=== PATIENT | male | born 1935 | race Caucasian/White ===

== ENCOUNTER 2018-11-10 20:22 | Inpatient (IN) | payer MEDICARE, OTHER ==
[2018-11-10] MEDS ORDERED: cefTRIAXone 2 GM Vial IVPUSH ONE (20:33)
[2018-11-10] MEDS ORDERED: Azithromycin 500 MG in Sodium Chloride 0.9% 250 ML IV ONE (20:33)
[2018-11-10] MEDS ORDERED: Sodium Chloride 0.9% 10 ML Syringe FLUSH PRN (20:33)
[2018-11-10] MEDS ORDERED: methylPREDNISolone Sodium Succinate 40 MG/1 ML SDV IVPUSH ONE (20:42)
[2018-11-10] MEDS ORDERED: Sodium Chloride 0.9% 1,000 ML IV ONE (20:42)
--- NOTE | 2018-11-10 21:02 | EDM.PDOC ---
ED HPI GENERAL MEDICAL PROBLEM - General Chief Complaint: Respiratory Problem Stated Complaint: NOT FEELING WELL Time Seen by Provider: 11/10/18 20:32 Source of Information: Reports: Patient History Limitations: Reports: No Limitations - History of Present Illness INITIAL COMMENTS - FREE TEXT/NARRATIVE: Patient comes in this evening with comlplaints of nausea, SOB, fever, cough. His daughter thinks he may have aspirated yesterday. He was out gardening early yesterday morning and developed nausea last night with emesis. Reports he felt better, but when he eats or drinks anything he does have emesis. He denies chest pain, abdominal pain or cramps, denies back pain. No urinary symptoms. Denies blood in urine or stool. Does complain of chills. Onset Date: 11/09/18 Duration: Intermittent Location: Reports: Generalized Severity: Moderate Worsens with: Reports: Eating, Movement Associated Symptoms: Reports: cough w sputum, Diaphoresis, Fever/Chills, Nausea/ Vomiting, Shortness of Breath - Related Data Allergies Allergy/AdvReac Type Severity Reaction Status Date / Time SIMONE Inhibitors Allergy Unknown Cannot Verified 11/10/18 20:39 Remember cisapride [From Propulsid] AdvReac Nausea and Verified 11/10/18 20:58 Vomiting Home Meds: Home Meds Metoprolol Succinate [Toprol Xl] 50 mg PO DAILY 11/10/18 [History] Psyllium Husk (With Sugar) [Metamucil Powder] 2 tsp PO DAILY 11/10/18 [History] Warfarin [Coumadin] 2.5 mg PO ASDIRECTED 11/10/18 [History] amLODIPine Besylate [Norvasc] 5 mg PO DAILY 11/10/18 [History] atorvaSTATin [Lipitor] 10 mg PO DAILY 11/10/18 [History] ED ROS GENERAL - Review of Systems Review Of Systems: See Below Constitutional: Reports: Fever, Chills HEENT: Reports: No Symptoms Respiratory: Reports: Shortness of Breath, Cough, Sputum Cardiovascular: Reports: Dyspnea on Exertion Endocrine: Reports: No Symptoms GI/Abdominal: Reports: Nausea, Vomiting : Reports: No Symptoms Musculoskeletal: Reports: No Symptoms Skin: Reports: No Symptoms Neurological: Reports: No Symptoms Psychiatric: Reports: No Symptoms Hematologic/Lymphatic: Reports: No Symptoms Immunologic: Reports: No Symptoms ED EXAM, GENERAL - Physical Exam Exam: See Below Free Text/Narrative:: PLEASE USE ER NOTE FOR ADMISSION HISTORY AND PHYSICAL Exam Limited By: No Limitations General Appearance: Alert, WD/WN, Moderate Distress Eye Exam: Bilateral Eye: EOMI, Normal Inspection, PERRL Ears: Normal TMs Nose: Normal Inspection, Normal Mucosa, No Blood Throat/Mouth: Normal Inspection, Normal Lips, Normal Teeth, Normal Gums, Normal Oropharynx, Normal Voice, No Airway Compromise Head: Atraumatic, Normocephalic Neck: Normal Inspection, Supple, Non-Tender, Full Range of Motion Respiratory/Chest: No Respiratory Distress, No Accessory Muscle Use, Chest Non- Tender, Rales (right lower lobe) Cardiovascular: Tachycardia Peripheral Pulses: 2+: Posterior Tibial (L), Posterior Tibial (R), Dorsalis Pedis (L), Dorsalis Pedis (R) GI/Abdominal: Normal Bowel Sounds, Soft, Non-Tender Back Exam: Normal Inspection, Full Range of Motion, NT Extremities: Pedal Edema (bilateral lower extremity edema 2+) Neurological: Alert, Oriented, CN II-XII Intact, Normal Cognition, Normal Gait, Normal Reflexes, No Motor/Sensory Deficits Psychiatric: Normal Affect, Normal Mood Skin Exam: Warm, Dry, Intact, Normal Color, No Rash Lymphatic: No Adenopathy EKG INTERPRETATION EKG Date: 11/10/18 Time: 20:25 Rhythm: Other (sinus tach) Rate (Beats/Min): 158 [place]: Normal P-Wave: Present QRS: Normal ST-T: Normal QT: Normal Comparison: NA - No Prior EKG Course - Vital Signs Last Recorded V/S: Last Vital Signs Temp 36.5 C 11/11/18 06:00 Pulse 107 H 11/11/18 06:00 Resp 18 11/11/18 06:00 BP 141/79 H 11/11/18 06:00 Pulse Ox 97 11/11/18 06:00 - Orders/Labs/Meds Orders: Active Orders 24 hr Category Date Time Status Chest 1V Frontal [CR] Stat Exams 11/10/18 20:33 Taken CULTURE BLOOD [BC] Stat Lab 11/10/18 20:58 Received CULTURE BLOOD [BC] Stat Lab 11/10/18 21:03 Received Sodium Chloride 0.9% [Saline Flush] Med 11/10/18 20:33 Active 10 ml FLUSH ASDIRECTED PRN Blood Culture x2 Reflex Set [OM.PC] Stat Oth 11/10/18 20:33 Ordered Saline Lock Insert [OM.PC] Routine Oth 11/10/18 20:33 Ordered Medication Orders Amlodipine Besylate (Norvasc) 5 mg PO DAILY [facility] Atorvastatin Calcium (Lipitor) 10 mg PO DAILY [facility] Lactated Ringer's (Ringers, Lactated) 1,000 mls @ 50 mls/hr IV ASDIRECTED [facility] Last Admin: 11/10/18 22:45 Dose: 50 mls/hr Piperacillin Sod/Tazobactam (Sod 3.375 gm/ Sodium Chloride) 100 mls @ 25 mls/ hr IV Q8H [facility] Metoprolol Succinate (Toprol Xl) 50 mg PO DAILY [facility] Ondansetron HCl (Zofran) 4 mg IV Q6H PRN PRN Reason: Nausea/Vomiting Psyllium Husk (Metamucil Sugar Free) 1 pkt PO DAILY [facility] Sodium Chloride (Saline Flush) 10 ml FLUSH ASDIRECTED PRN PRN Reason: Keep Vein Open Warfarin Sodium (Coumadin) 2.5 mg PO ASDIRECTED [facility] Labs: Laboratory Tests 11/10/18 11/10/18 11/10/18 Range/Units 20:58 20:58 20:58 WBC 11.6 H (4.0-10.0) x10^3/uL RBC 5.06 (4.5-6.0) x10^6/uL Hgb 14.8 (14.0-18.0) g/dL Hct 45.3 (40.0-52.0) % MCV 89.5 (78.0-93.0) fL MCH 29.2 (26.0-32.0) pg MCHC 32.7 (32.0-36.0) g/dL RDW Coeff of Kay 14.0 (10.0-15.0) % Plt Count 167 (130-400) x10^3/uL Neut % (Auto) 90.9 H (50.0-80.0) % Lymph % (Auto) 2.8 L (25.0-50.0) % [place] % (Auto) 6.3 (2.0-11.0) % Eos % (Auto) 0.0 (0.0-4.0) % Baso % (Auto) 0.0 L (0.2-1.2) % PT 28.3 H (10.0-12.8) SEC INR 2.5 (2.0-3.5) POC ABG pH (7.35-7.45) POC ABG pCO2 (35-45) mmHG POC ABG pO2 (80-105) mmHG POC ABG HCO3 (22-26) mmol/L POC ABG Total CO2 (23-27) mmol/L POC ABG O2 Sat (95-98) % POC ABG Base Excess (-2-3) mmol/L POC FiO2 Sodium 146 H (136-145) mmol/L Potassium 4.0 (3.5-5.1) mmol/L Chloride 108 H (98-107) mmol/L Carbon Dioxide 25 (21-32) mmol/L Anion Gap 17.0 (10-20) mmol/L BUN 30 H (7-18) mg/dL Creatinine 1.3 (0.70-1.30) mg/dL Est Cr Clr Drug Dosing TNP Estimated GFR (MDRD) 53 Glucose 142 H (74-106) mg/dL Lactic Acid (0.4-2.0) mmol/L Calcium 9.1 (8.5-10.1) mg/dL Corrected Calcium 9.10 (8.5-10.1) mg/dL Magnesium 1.9 (1.8-2.4) mg/dL Total Bilirubin 1.6 H (0.2-1.0) mg/dL AST 34 (15-37) U/L ALT 33 (16-63) U/L Alkaline Phosphatase 122 H (46-116) U/L Troponin I < 0.017 (<=0.056) ng/mL C-Reactive Protein (<=0.9) mg/dL NT-Pro-B Natriuret Pep 4207 H (<=450) pg/mL Total Protein 7.3 (6.4-8.2) g/dL Albumin 4.0 (3.4-5.0) g/dL Globulin 3.3 Albumin/Globulin Ratio 1.21 TSH, Ultra Sensitive 1.182 (0.358-3.74) uIU/mL POC Result Comm Urine Color (YELLOW) Urine Appearance (CLEAR) Urine pH (5.0-8.0) Ur Specific [place] Urine Protein (NEGATIVE) mg/dL Urine Glucose (UA) (NEGATIVE) mg/dL Urine Ketones (NEGATIVE) mg/dL Urine Occult Blood (NEGATIVE) Urine Nitrite (NEGATIVE) Urine Bilirubin (NEGATIVE) Urine Urobilinogen (0.2) EU/dL Ur Leukocyte Esterase (NEGATIVE) Urine RBC (NOT SEEN) /HPF Urine WBC (NOT SEEN) /HPF Ur Squamous Epith Cells (NEGATIVE) /HPF Urine Bacteria (NEGATIVE) /HPF Hyaline Casts (NEGATIVE) /HPF Urine Mucus (NEGATIVE) /LPF 11/10/18 11/10/18 11/10/18 Range/Units 20:58 20:58 21:19 WBC (4.0-10.0) x10^3/uL RBC (4.5-6.0) x10^6/uL Hgb (14.0-18.0) g/dL Hct (40.0-52.0) % MCV (78.0-93.0) fL MCH (26.0-32.0) pg MCHC (32.0-36.0) g/dL RDW Coeff of Kay (10.0-15.0) % Plt Count (130-400) x10^3/uL Neut % (Auto) (50.0-80.0) % Lymph % (Auto) (25.0-50.0) % [place] % (Auto) (2.0-11.0) % Eos % (Auto) (0.0-4.0) % Baso % (Auto) (0.2-1.2) % PT (10.0-12.8) SEC INR (2.0-3.5) POC ABG pH 7.401 (7.35-7.45) POC ABG pCO2 39 (35-45) mmHG POC ABG pO2 47 L* (80-105) mmHG POC ABG HCO3 24 (22-26) mmol/L POC ABG Total CO2 25 (23-27) mmol/L POC ABG O2 Sat 83 L (95-98) % POC ABG Base Excess -1 (-2-3) mmol/L POC FiO2 0.28 Sodium (136-145) mmol/L Potassium (3.5-5.1) mmol/L Chloride (98-107) mmol/L Carbon Dioxide (21-32) mmol/L Anion Gap (10-20) mmol/L BUN (7-18) mg/dL Creatinine (0.70-1.30) mg/dL Est Cr Clr Drug Dosing Estimated GFR (MDRD) Glucose (74-106) mg/dL Lactic Acid 2.5 H* (0.4-2.0) mmol/L Calcium (8.5-10.1) mg/dL Corrected Calcium (8.5-10.1) mg/dL Magnesium (1.8-2.4) mg/dL Total Bilirubin (0.2-1.0) mg/dL AST (15-37) U/L ALT (16-63) U/L Alkaline Phosphatase (46-116) U/L Troponin I (<=0.056) ng/mL C-Reactive Protein 17.4 H (<=0.9) mg/dL NT-Pro-B Natriuret Pep (<=450) pg/mL Total Protein (6.4-8.2) g/dL Albumin (3.4-5.0) g/dL Globulin Albumin/Globulin Ratio TSH, Ultra Sensitive (0.358-3.74) uIU/mL POC Result Comm Called critical res Urine Color (YELLOW) Urine Appearance (CLEAR) Urine pH (5.0-8.0) Ur Specific [place] Urine Protein (NEGATIVE) mg/dL Urine Glucose (UA) (NEGATIVE) mg/dL Urine Ketones (NEGATIVE) mg/dL Urine Occult Blood (NEGATIVE) Urine Nitrite (NEGATIVE) Urine Bilirubin (NEGATIVE) Urine Urobilinogen (0.2) EU/dL Ur Leukocyte Esterase (NEGATIVE) Urine RBC (NOT SEEN) /HPF Urine WBC (NOT SEEN) /HPF Ur Squamous Epith Cells (NEGATIVE) /HPF Urine Bacteria (NEGATIVE) /HPF Hyaline Casts (NEGATIVE) /HPF Urine Mucus (NEGATIVE) /LPF 11/10/18 Range/Units 21:36 WBC (4.0-10.0) x10^3/uL RBC (4.5-6.0) x10^6/uL Hgb (14.0-18.0) g/dL Hct (40.0-52.0) % MCV (78.0-93.0) fL MCH (26.0-32.0) pg MCHC (32.0-36.0) g/dL RDW Coeff of Kay (10.0-15.0) % Plt Count (130-400) x10^3/uL Neut % (Auto) (50.0-80.0) % Lymph % (Auto) (25.0-50.0) % [place] % (Auto) (2.0-11.0) % Eos % (Auto) (0.0-4.0) % Baso % (Auto) (0.2-1.2) % PT (10.0-12.8) SEC INR (2.0-3.5) POC ABG pH (7.35-7.45) POC ABG pCO2 (35-45) mmHG POC ABG pO2 (80-105) mmHG POC ABG HCO3 (22-26) mmol/L POC ABG Total CO2 (23-27) mmol/L POC ABG O2 Sat (95-98) % POC ABG Base Excess (-2-3) mmol/L POC FiO2 Sodium (136-145) mmol/L Potassium (3.5-5.1) mmol/L Chloride (98-107) mmol/L Carbon Dioxide (21-32) mmol/L Anion Gap (10-20) mmol/L BUN (7-18) mg/dL Creatinine (0.70-1.30) mg/dL Est Cr Clr Drug Dosing Estimated GFR (MDRD) Glucose (74-106) mg/dL Lactic Acid (0.4-2.0) mmol/L Calcium (8.5-10.1) mg/dL Corrected Calcium (8.5-10.1) mg/dL Magnesium (1.8-2.4) mg/dL Total Bilirubin (0.2-1.0) mg/dL AST (15-37) U/L ALT (16-63) U/L Alkaline Phosphatase (46-116) U/L Troponin I (<=0.056) ng/mL C-Reactive Protein (<=0.9) mg/dL NT-Pro-B Natriuret Pep (<=450) pg/mL Total Protein (6.4-8.2) g/dL Albumin (3.4-5.0) g/dL Globulin Albumin/Globulin Ratio TSH, Ultra Sensitive (0.358-3.74) uIU/mL POC Result Comm Urine Color Yellow (YELLOW) Urine Appearance Clear (CLEAR) Urine pH 5.5 (5.0-8.0) Ur Specific [place] 1.015 Urine Protein 30 H (NEGATIVE) mg/dL Urine Glucose (UA) Negative (NEGATIVE) mg/dL Urine Ketones 15 H (NEGATIVE) mg/dL Urine Occult Blood Negative (NEGATIVE) Urine Nitrite Negative (NEGATIVE) Urine Bilirubin Small H (NEGATIVE) Urine Urobilinogen 1.0 (0.2) EU/dL Ur Leukocyte Esterase Trace H (NEGATIVE) Urine RBC Not seen (NOT SEEN) /HPF Urine WBC 0-5 (NOT SEEN) /HPF Ur Squamous Epith Cells Rare (NEGATIVE) /HPF Urine Bacteria Rare (NEGATIVE) /HPF Hyaline Casts Rare H (NEGATIVE) /HPF Urine Mucus Rare H (NEGATIVE) /LPF Meds: Medications Generic Name Dose Route Start Last Admin Trade Name Freq PRN Reason Stop Dose Admin Amlodipine Besylate 5 mg 11/11/18 08:00 Norvasc PO DAILY [facility] Atorvastatin Calcium 10 mg 11/11/18 08:00 Lipitor PO DAILY [facility] Lactated Ringer's 1,000 mls @ 50 mls/hr 11/10/18 22:30 11/10/18 22:45 Ringers, Lactated IV 50 mls/hr ASDIRECTED SALLIE Administration Piperacillin Sod/Tazobactam 100 mls @ 25 mls/hr 11/11/18 09:00 Sod 3.375 gm/ Sodium Chloride IV Q8H [facility] Metoprolol Succinate 50 mg 11/11/18 08:00 Toprol Xl PO DAILY [facility] Ondansetron HCl 4 mg 11/10/18 22:12 Zofran IV Q6H PRN Nausea/Vomiting Psyllium Husk 1 pkt 11/11/18 08:00 Metamucil Sugar Free PO DAILY [facility] Sodium Chloride 10 ml 11/10/18 20:33 Saline Flush FLUSH ASDIRECTED PRN Keep Vein Open Warfarin Sodium 2.5 mg 11/10/18 22:45 Coumadin PO ASDIRECTED SALLIE Discontinued Medications Generic Name Dose Route Start Last Admin Trade Name Freq PRN Reason Stop Dose Admin Ampicillin Sodium/Sulbactam Sodium 3 gm 11/11/18 00:01 11/11/18 01:24 Unasyn IV Not Given Q6H SALLIE Ampicillin Sodium/Sulbactam Sodium 3 gm 11/10/18 22:30 11/11/18 00:15 Unasyn IV 11/10/18 22:31 Not Given ONETIME ONE Ceftriaxone Sodium 2 gm 11/10/18 20:33 11/10/18 21:04 Rocephin IVPUSH 11/10/18 20:34 2 gm STAT ONE Administration Azithromycin 500 mg/ Sodium 250 mls @ 250 mls/hr 11/10/18 20:33 11/10/18 21: 09 Chloride IV 11/10/18 21:32 250 mls/hr STAT ONE Administration Sodium Chloride 1,000 mls @ 999 mls/hr 11/10/18 20:42 11/10/18 21:00 Normal Saline IV 11/10/18 21:42 999 mls/hr ONETIME ONE Administration Piperacillin Sod/Tazobactam 100 mls @ 200 mls/hr 11/11/18 00:30 11/11/18 00: 50 Sod 4.5 gm/ Sodium Chloride IV 11/11/18 00:59 200 mls/hr ONETIME ONE Administration Methylprednisolone Sodium Succinate 40 mg 11/10/18 20:42 11/10/18 21:02 Solu-Medrol IVPUSH 11/10/18 20:43 40 mg ONETIME ONE Administration - Re-Assessments/Exams Free Text/Narrative Re-Assessment/Exam: Patient to be admitted to acute care. Code I. Stable in our care in the ER this evening Departure - Departure Time of Disposition: 22:15 Disposition: Admitted As Inpatient 66 Condition: Fair Clinical Impression: Aspiration pneumonia Qualifiers: Aspiration pneumonia type: due to regurgitated food Laterality: right Lung location: middle lobe of lung Qualified Code(s): J69.0 - Pneumonitis due to inhalation of food and vomit - Discharge Information *PRESCRIPTION DRUG MONITORING PROGRAM REVIEWED*: Not Applicable *COPY OF PRESCRIPTION DRUG MONITORING REPORT IN PATIENT EMELY: Not Applicable ED Communication - ED Communication Date/Time Date: 11/10/18 Time Called: 21:36 - Discussed Case With (1) Discussed Case With (1): Admitting Provider (Seth Warren was contacted regarding likely aspiration pneumonia and acute admission. Will seee in AM.) - Problem List & Annotations (1) Aspiration pneumonia SNOMED Code(s): 561937767 Code(s): J69.0 - PNEUMONITIS DUE TO INHALATION OF FOOD AND VOMIT Status: Acute Priority: Medium Current Visit: Yes Qualifiers: Aspiration pneumonia type: due to regurgitated food Laterality: right Lung location: middle lobe of lung Qualified Code(s): J69.0 - Pneumonitis due to inhalation of food and vomit - Problem List Review Problem List Initiated/Reviewed/Updated: Yes - My Orders Last 24 Hours: My Active Orders 11/10/18 20:33 Chest 1V Frontal [CR] Stat Sodium Chloride 0.9% [Saline Flush] 10 ml FLUSH ASDIRECTED PRN Blood Culture x2 Reflex Set [OM.PC] Stat Saline Lock Insert [OM.PC] Routine 11/10/18 20:58 CULTURE BLOOD [BC] Stat 11/10/18 21:03 CULTURE BLOOD [BC] Stat - Assessment/Plan Last 24 Hours: My Active Orders 11/10/18 20:33 Chest 1V Frontal [CR] Stat Sodium Chloride 0.9% [Saline Flush] 10 ml FLUSH ASDIRECTED PRN Blood Culture x2 Reflex Set [OM.PC] Stat Saline Lock Insert [OM.PC] Routine 11/10/18 20:58 CULTURE BLOOD [BC] Stat 11/10/18 21:03 CULTURE BLOOD [BC] Stat Assessment:: right middle lobe aspiration Plan: Plan Admit to acute status with IV antibiotics, oxygen administration, continuous pulse oximetry and telemetry. Patient is anticoagulated with warfarin and we will continue this. Will continue medications from home as tolerated. Will rehydrate slowly with his CHF enzymes being elevated. Recheck labs in AM. Seth Warren to assume care in AM. His primary provider Dr. Adelia Abreu is cushion maker hand Sunday, she may be willing to take over care for Lai at that time.
[2018-11-10 21:50] LABS: CHLORIDE,CL 108 mmol/L (98-107); SODIUM,NA 146 mmol/L (136-145)
[2018-11-10] MEDS ORDERED: Ondansetron 4 MG/2 ML SDV IV PRN (22:12)
[2018-11-10] MEDS ORDERED: Ampicillin/Sulbactam Na 3 GM Vial IV ONE (22:30)
[2018-11-10] MEDS: Lactated Ringers 1,000 ML IV SCH (22:45)
[2018-11-11] MEDS ORDERED: Piperacillin/Tazobactam 4.5 GM in Sodium Chloride 0.9% 100 ML IV SCH ×2
[2018-11-11] MEDS ORDERED: Ampicillin/Sulbactam Na 3 GM Vial IV SCH (00:01)
[2018-11-11] MEDS ORDERED: Piperacillin/Tazobactam 4.5 GM in Sodium Chloride 0.9% 100 ML IV ONE (00:30)
[2018-11-11 07:35] LABS: ANION GAP 13.2 mmol/L (10-20)
[2018-11-11] MEDS ORDERED: amLODIPine 10 MG Tab PO SCH (08:00)
--- NOTE | 2018-11-11 08:14 | CR ---
[id number] RAD/RAD Chest PA or AP 1V EXAM: FRONTAL CHEST INDICATION: Shortness of breath with aspiration pneumonia. COMPARISON: None. DISCUSSION: Mild to moderate medial right lung base airspace opacification compatible with the clinical history of pneumonia. Possible early infiltrates or atelectasis in the left lung base. Unless clinically indicated sooner, a 6 week follow-up exam suggested to ensure resolution. There is mild eventration of right hemidiaphragm. Possible underlying chronic obstructive pulmonary disease. Borderline heart size without evidence congestive heart failure. IMPRESSION: 1. Right base infiltrates. Oleg Cooper MD 11/11/18 0812 Thank you for allowing us to participate in the care of your patient.
--- NOTE | 2018-11-11 08:30 | PCM.PN ---
- General Info Date of Service: 11/11/18 Admission Dx/Problem (Free Text): Pt. is feeling much improved this AM. He was briefly on O2 per NRB at 10L/min due to tachycardia and low O2 sats. He has been on NC at 4L/min for a majority of the night. Blood gas is much improved this am with a PO2 increase from 47 to 127. He was given rocephin and azithromycin in ER, but given his history of recent aspiration, he was started on zosyn 4.5 gm with pharmacy to dose. Pt. states the he slept relatively well. He is continuing to get IV LR at 50ml an hour as his BNP was elevated. Pt. lactic acid decreased from 2.7 to 1.5 this AM as well. Functional Status: Reports: Pain Controlled - Review of Systems General: Reports: No Symptoms HEENT: Reports: No Symptoms Pulmonary: Reports: Shortness of Breath, Cough Cardiovascular: Reports: No Symptoms Gastrointestinal: Reports: No Symptoms Genitourinary: Reports: No Symptoms Musculoskeletal: Reports: No Symptoms Skin: Reports: No Symptoms Neurological: Reports: No Symptoms Psychiatric: Reports: No Symptoms - Patient Data Vitals - Most Recent: Last Vital Signs Temp 36.5 C 11/11/18 06:00 Pulse 107 H 11/11/18 06:00 Resp 18 11/11/18 06:00 BP 141/79 H 11/11/18 06:00 Pulse Ox 97 11/11/18 06:00 Weight - Most Recent: 82.871 kg Lab Results Last 24 Hours: Laboratory Results - last 24 hr 11/10/18 11/10/18 11/10/18 Range/Units 20:58 20:58 20:58 WBC 11.6 H (4.0-10.0) x10^3/uL RBC 5.06 (4.5-6.0) x10^6/uL Hgb 14.8 (14.0-18.0) g/dL Hct 45.3 (40.0-52.0) % MCV 89.5 (78.0-93.0) fL MCH 29.2 (26.0-32.0) pg MCHC 32.7 (32.0-36.0) g/dL RDW Coeff of Kay 14.0 (10.0-15.0) % Plt Count 167 (130-400) x10^3/uL Neut % (Auto) 90.9 H (50.0-80.0) % Lymph % (Auto) 2.8 L (25.0-50.0) % [place] % (Auto) 6.3 (2.0-11.0) % Eos % (Auto) 0.0 (0.0-4.0) % Baso % (Auto) 0.0 L (0.2-1.2) % PT 28.3 H (10.0-12.8) SEC INR 2.5 (2.0-3.5) POC ABG pH (7.35-7.45) POC ABG pCO2 (35-45) mmHG POC ABG pO2 (80-105) mmHG POC ABG HCO3 (22-26) mmol/L POC ABG Total CO2 (23-27) mmol/L POC ABG O2 Sat (95-98) % POC ABG Base Excess (-2-3) mmol/L POC FiO2 Sodium 146 H (136-145) mmol/L Potassium 4.0 (3.5-5.1) mmol/L Chloride 108 H (98-107) mmol/L Carbon Dioxide 25 (21-32) mmol/L Anion Gap 17.0 (10-20) mmol/L BUN 30 H (7-18) mg/dL Creatinine 1.3 (0.70-1.30) mg/dL Est Cr Clr Drug Dosing TNP Estimated GFR (MDRD) 53 Glucose 142 H (74-106) mg/dL Lactic Acid (0.4-2.0) mmol/L Calcium 9.1 (8.5-10.1) mg/dL Corrected Calcium 9.10 (8.5-10.1) mg/dL Magnesium 1.9 (1.8-2.4) mg/dL Total Bilirubin 1.6 H (0.2-1.0) mg/dL AST 34 (15-37) U/L ALT 33 (16-63) U/L Alkaline Phosphatase 122 H (46-116) U/L Troponin I < 0.017 (<=0.056) ng/mL C-Reactive Protein (<=0.9) mg/dL NT-Pro-B Natriuret Pep 4207 H (<=450) pg/mL Total Protein 7.3 (6.4-8.2) g/dL Albumin 4.0 (3.4-5.0) g/dL Globulin 3.3 Albumin/Globulin Ratio 1.21 TSH, Ultra Sensitive 1.182 (0.358-3.74) uIU/mL POC Result Comm Urine Color (YELLOW) Urine Appearance (CLEAR) Urine pH (5.0-8.0) Ur Specific [place] Urine Protein (NEGATIVE) mg/dL Urine Glucose (UA) (NEGATIVE) mg/dL Urine Ketones (NEGATIVE) mg/dL Urine Occult Blood (NEGATIVE) Urine Nitrite (NEGATIVE) Urine Bilirubin (NEGATIVE) Urine Urobilinogen (0.2) EU/dL Ur Leukocyte Esterase (NEGATIVE) Urine RBC (NOT SEEN) /HPF Urine WBC (NOT SEEN) /HPF Ur Squamous Epith Cells (NEGATIVE) /HPF Urine Bacteria (NEGATIVE) /HPF Hyaline Casts (NEGATIVE) /HPF Urine Mucus (NEGATIVE) /LPF 11/10/18 11/10/18 11/10/18 Range/Units 20:58 20:58 21:19 WBC (4.0-10.0) x10^3/uL RBC (4.5-6.0) x10^6/uL Hgb (14.0-18.0) g/dL Hct (40.0-52.0) % MCV (78.0-93.0) fL MCH (26.0-32.0) pg MCHC (32.0-36.0) g/dL RDW Coeff of Kay (10.0-15.0) % Plt Count (130-400) x10^3/uL Neut % (Auto) (50.0-80.0) % Lymph % (Auto) (25.0-50.0) % [place] % (Auto) (2.0-11.0) % Eos % (Auto) (0.0-4.0) % Baso % (Auto) (0.2-1.2) % PT (10.0-12.8) SEC INR (2.0-3.5) POC ABG pH 7.401 (7.35-7.45) POC ABG pCO2 39 (35-45) mmHG POC ABG pO2 47 L* (80-105) mmHG POC ABG HCO3 24 (22-26) mmol/L POC ABG Total CO2 25 (23-27) mmol/L POC ABG O2 Sat 83 L (95-98) % POC ABG Base Excess -1 (-2-3) mmol/L POC FiO2 0.28 Sodium (136-145) mmol/L Potassium (3.5-5.1) mmol/L Chloride (98-107) mmol/L Carbon Dioxide (21-32) mmol/L Anion Gap (10-20) mmol/L BUN (7-18) mg/dL Creatinine (0.70-1.30) mg/dL Est Cr Clr Drug Dosing Estimated GFR (MDRD) Glucose (74-106) mg/dL Lactic Acid 2.5 H* (0.4-2.0) mmol/L Calcium (8.5-10.1) mg/dL Corrected Calcium (8.5-10.1) mg/dL Magnesium (1.8-2.4) mg/dL Total Bilirubin (0.2-1.0) mg/dL AST (15-37) U/L ALT (16-63) U/L Alkaline Phosphatase (46-116) U/L Troponin I (<=0.056) ng/mL C-Reactive Protein 17.4 H (<=0.9) mg/dL NT-Pro-B Natriuret Pep (<=450) pg/mL Total Protein (6.4-8.2) g/dL Albumin (3.4-5.0) g/dL Globulin Albumin/Globulin Ratio TSH, Ultra Sensitive (0.358-3.74) uIU/mL POC Result Comm Called critical res Urine Color (YELLOW) Urine Appearance (CLEAR) Urine pH (5.0-8.0) Ur Specific [place] Urine Protein (NEGATIVE) mg/dL Urine Glucose (UA) (NEGATIVE) mg/dL Urine Ketones (NEGATIVE) mg/dL Urine Occult Blood (NEGATIVE) Urine Nitrite (NEGATIVE) Urine Bilirubin (NEGATIVE) Urine Urobilinogen (0.2) EU/dL Ur Leukocyte Esterase (NEGATIVE) Urine RBC (NOT SEEN) /HPF Urine WBC (NOT SEEN) /HPF Ur Squamous Epith Cells (NEGATIVE) /HPF Urine Bacteria (NEGATIVE) /HPF Hyaline Casts (NEGATIVE) /HPF Urine Mucus (NEGATIVE) /LPF 11/10/18 11/11/18 11/11/18 Range/Units 21:36 06:30 06:30 WBC 13.1 H (4.0-10.0) x10^3/uL RBC 4.72 (4.5-6.0) x10^6/uL Hgb 13.8 L (14.0-18.0) g/dL Hct 42.9 (40.0-52.0) % MCV 90.9 (78.0-93.0) fL MCH 29.2 (26.0-32.0) pg MCHC 32.2 (32.0-36.0) g/dL RDW Coeff of Kay 13.9 (10.0-15.0) % Plt Count 137 (130-400) x10^3/uL Neut % (Auto) 91.9 H (50.0-80.0) % Lymph % (Auto) 2.8 L (25.0-50.0) % [place] % (Auto) 5.2 (2.0-11.0) % Eos % (Auto) 0.0 (0.0-4.0) % Baso % (Auto) 0.1 L (0.2-1.2) % PT (10.0-12.8) SEC INR (2.0-3.5) POC ABG pH (7.35-7.45) POC ABG pCO2 (35-45) mmHG POC ABG pO2 (80-105) mmHG POC ABG HCO3 (22-26) mmol/L POC ABG Total CO2 (23-27) mmol/L POC ABG O2 Sat (95-98) % POC ABG Base Excess (-2-3) mmol/L POC FiO2 Sodium 146 H (136-145) mmol/L Potassium 4.2 (3.5-5.1) mmol/L Chloride 109 H (98-107) mmol/L Carbon Dioxide 28 (21-32) mmol/L Anion Gap 13.2 (10-20) mmol/L BUN 33 H (7-18) mg/dL Creatinine 1.3 (0.70-1.30) mg/dL Est Cr Clr Drug Dosing 42.35 Estimated GFR (MDRD) 53 Glucose 151 H (74-106) mg/dL Lactic Acid (0.4-2.0) mmol/L Calcium 8.6 (8.5-10.1) mg/dL Corrected Calcium (8.5-10.1) mg/dL Magnesium (1.8-2.4) mg/dL Total Bilirubin (0.2-1.0) mg/dL AST (15-37) U/L ALT (16-63) U/L Alkaline Phosphatase (46-116) U/L Troponin I (<=0.056) ng/mL C-Reactive Protein 22.1 H (<=0.9) mg/dL NT-Pro-B Natriuret Pep (<=450) pg/mL Total Protein (6.4-8.2) g/dL Albumin (3.4-5.0) g/dL Globulin Albumin/Globulin Ratio TSH, Ultra Sensitive (0.358-3.74) uIU/mL POC Result Comm Urine Color Yellow (YELLOW) Urine Appearance Clear (CLEAR) Urine pH 5.5 (5.0-8.0) Ur Specific [place] 1.015 Urine Protein 30 H (NEGATIVE) mg/dL Urine Glucose (UA) Negative (NEGATIVE) mg/dL Urine Ketones 15 H (NEGATIVE) mg/dL Urine Occult Blood Negative (NEGATIVE) Urine Nitrite Negative (NEGATIVE) Urine Bilirubin Small H (NEGATIVE) Urine Urobilinogen 1.0 (0.2) EU/dL Ur Leukocyte Esterase Trace H (NEGATIVE) Urine RBC Not seen (NOT SEEN) /HPF Urine WBC 0-5 (NOT SEEN) /HPF Ur Squamous Epith Cells Rare (NEGATIVE) /HPF Urine Bacteria Rare (NEGATIVE) /HPF Hyaline Casts Rare H (NEGATIVE) /HPF Urine Mucus Rare H (NEGATIVE) /LPF 11/11/18 11/11/18 Range/Units 06:30 07:54 WBC (4.0-10.0) x10^3/uL RBC (4.5-6.0) x10^6/uL Hgb (14.0-18.0) g/dL Hct (40.0-52.0) % MCV (78.0-93.0) fL MCH (26.0-32.0) pg MCHC (32.0-36.0) g/dL RDW Coeff of Kay (10.0-15.0) % Plt Count (130-400) x10^3/uL Neut % (Auto) (50.0-80.0) % Lymph % (Auto) (25.0-50.0) % [place] % (Auto) (2.0-11.0) % Eos % (Auto) (0.0-4.0) % Baso % (Auto) (0.2-1.2) % PT (10.0-12.8) SEC INR (2.0-3.5) POC ABG pH 7.381 (7.35-7.45) POC ABG pCO2 40 (35-45) mmHG POC ABG pO2 124 H (80-105) mmHG POC ABG HCO3 24 (22-26) mmol/L POC ABG Total CO2 25 (23-27) mmol/L POC ABG O2 Sat 99 H (95-98) % POC ABG Base Excess -1 (-2-3) mmol/L POC FiO2 0.44 Sodium (136-145) mmol/L Potassium (3.5-5.1) mmol/L Chloride (98-107) mmol/L Carbon Dioxide (21-32) mmol/L Anion Gap (10-20) mmol/L BUN (7-18) mg/dL Creatinine (0.70-1.30) mg/dL Est Cr Clr Drug Dosing Estimated GFR (MDRD) Glucose (74-106) mg/dL Lactic Acid 1.7 (0.4-2.0) mmol/L Calcium (8.5-10.1) mg/dL Corrected Calcium (8.5-10.1) mg/dL Magnesium (1.8-2.4) mg/dL Total Bilirubin (0.2-1.0) mg/dL AST (15-37) U/L ALT (16-63) U/L Alkaline Phosphatase (46-116) U/L Troponin I (<=0.056) ng/mL C-Reactive Protein (<=0.9) mg/dL NT-Pro-B Natriuret Pep (<=450) pg/mL Total Protein (6.4-8.2) g/dL Albumin (3.4-5.0) g/dL Globulin Albumin/Globulin Ratio TSH, Ultra Sensitive (0.358-3.74) uIU/mL POC Result Comm Urine Color (YELLOW) Urine Appearance (CLEAR) Urine pH (5.0-8.0) Ur Specific [place] Urine Protein (NEGATIVE) mg/dL Urine Glucose (UA) (NEGATIVE) mg/dL Urine Ketones (NEGATIVE) mg/dL Urine Occult Blood (NEGATIVE) Urine Nitrite (NEGATIVE) Urine Bilirubin (NEGATIVE) Urine Urobilinogen (0.2) EU/dL Ur Leukocyte Esterase (NEGATIVE) Urine RBC (NOT SEEN) /HPF Urine WBC (NOT SEEN) /HPF Ur Squamous Epith Cells (NEGATIVE) /HPF Urine Bacteria (NEGATIVE) /HPF Hyaline Casts (NEGATIVE) /HPF Urine Mucus (NEGATIVE) /LPF Med Orders - Current: Current Medications Amlodipine Besylate (Norvasc) 5 mg PO DAILY [facility] Atorvastatin Calcium (Lipitor) 10 mg PO DAILY [facility] Lactated Ringer's (Ringers, Lactated) 1,000 mls @ 50 mls/hr IV ASDIRECTED [facility] Last Admin: 11/10/18 22:45 Dose: 50 mls/hr Piperacillin Sod/Tazobactam (Sod 3.375 gm/ Sodium Chloride) 100 mls @ 25 mls/ hr IV Q8H [facility] Metoprolol Succinate (Toprol Xl) 50 mg PO DAILY [facility] Ondansetron HCl (Zofran) 4 mg IV Q6H PRN PRN Reason: Nausea/Vomiting Psyllium Husk (Metamucil Sugar Free) 1 pkt PO DAILY [facility] Sodium Chloride (Saline Flush) 10 ml FLUSH ASDIRECTED PRN PRN Reason: Keep Vein Open Warfarin Sodium (Coumadin) 2.5 mg PO ASDIRECTED [facility] Discontinued Medications Ampicillin Sodium/Sulbactam Sodium (Unasyn) 3 gm IV Q6H [facility] Last Admin: 11/11/18 01:24 Dose: Not Given Ampicillin Sodium/Sulbactam Sodium (Unasyn) 3 gm IV ONETIME ONE Stop: 11/10/18 22:31 Last Admin: 11/11/18 00:15 Dose: Not Given Ceftriaxone Sodium (Rocephin) 2 gm IVPUSH STAT ONE Stop: 11/10/18 20:34 Last Admin: 11/10/18 21:04 Dose: 2 gm Azithromycin 500 mg/ Sodium (Chloride) 250 mls @ 250 mls/hr IV STAT ONE Stop: 11/10/18 21:32 Last Admin: 11/10/18 21:09 Dose: 250 mls/hr Sodium Chloride (Normal Saline) 1,000 mls @ 999 mls/hr IV ONETIME ONE Stop: 11/10/18 21:42 Last Admin: 11/10/18 21:00 Dose: 999 mls/hr Piperacillin Sod/Tazobactam (Sod 4.5 gm/ Sodium Chloride) 100 mls @ 200 mls/hr IV ONETIME ONE Stop: 11/11/18 00:59 Last Admin: 11/11/18 00:50 Dose: 200 mls/hr Methylprednisolone Sodium Succinate (Solu-Medrol) 40 mg IVPUSH ONETIME ONE Stop: 11/10/18 20:43 Last Admin: 11/10/18 21:02 Dose: 40 mg - Exam General: Alert, Oriented Lungs: Decreased Breath Sounds, Crackles, Rhonchi Cardiovascular: Irregular Rhythm GI/Abdominal Exam: Normal Bowel Sounds, Soft, Non-Tender, No Organomegaly, No Distention, No Abnormal Bruit, No Mass (Male) Exam: Deferred Back Exam: Normal Inspection, Full Range of Motion Extremities: Normal Inspection, Normal Range of Motion, Non-Tender, No Pedal Edema, Normal Capillary Refill Skin: Warm, Dry, Intact Neurological: No New Focal Deficit, Normal Speech, Normal Tone, Strength Equal Bilateral, Sensation Intact, Cranial Nerves Intact Psy/Mental Status: Alert, Normal Affect, Normal Mood - Problem List & Annotations (1) Aspiration pneumonia SNOMED Code(s): 220482329 Code(s): J69.0 - PNEUMONITIS DUE TO INHALATION OF FOOD AND VOMIT Status: Acute Priority: Medium Current Visit: Yes Qualifiers: Aspiration pneumonia type: due to regurgitated food Laterality: right Lung location: middle lobe of lung Qualified Code(s): J69.0 - Pneumonitis due to inhalation of food and vomit - Problem List Review Problem List Initiated/Reviewed/Updated: Yes - My Orders Last 24 Hours: My Active Orders 11/11/18 09:00 Piperacillin/Tazobactam [Zosyn] 3.375 gm Sodium Chloride 0.9% [Normal Saline] 100 ml IV Q8H - Plan Plan:: Pt. PCP will be assuming care of the patient today. She states that she will round on him around noon as I have seen him this AM. No changes to his medications at this point. Continue IV zosyn every 6 hours. He is already anticoagulated due to a-fib and his INR was theraputic. All questions were answered.
[2018-11-11] MEDS: Psyllium Husk Powder Sugar Free 5.85 GM Packet PO SCH (08:38)
[2018-11-11] MEDS: Metoprolol Succinate 50 MG Tab.ER PO SCH (08:41)
[2018-11-11] MEDS: atorvaSTATin 10 MG Tab PO SCH (08:43)
[2018-11-11] MEDS: Piperacillin/Tazobactam 3.375 GM in Sodium Chloride 0.9% 100 ML IV SCH ×2 (08:47→17:23)
[2018-11-11] MEDS ORDERED: Metoprolol Tartrate 50 MG Tab PO ONE (12:00)
--- NOTE | 2018-11-11 16:41 | CR ---
[id number] RAD/RAD Chest PA And Lateral EXAM: FRONTAL CHEST INDICATION: PNEUMONIA. COMPARISON: November 10, 2018. DISCUSSION: Mild to moderate medial right lung base airspace opacification is not changed when compared to the prior study. There is mild eventration of right hemidiaphragm. Pulmonary hyperinflation. Borderline heart size without evidence congestive heart failure. IMPRESSION: 1. Stable chest with right base pulmonary infiltrates. Prieto Corley DO 11/11/18 [id number] Thank you for allowing us to participate in the care of your patient.
--- NOTE | 2018-11-11 16:44 | PN ---
Progress Note for GWENDOLYN MOORE Date: 11/11/2018 Room #: .[facility] SUBJECTIVE: Hospital day #2 on an 83-year-old admitted yesterday with a right middle lobe pneumonia. The patient states he started feeling unwell Sunday. He was having a hard time swallowing liquids. They were sort of coming up, and he felt like he could throw up, but he did not. He started to cough up some stuff, but was not overly short of breath, but presented to the ER at the urgency of his family with some fever and was found to be quite hypoxic and in fact, put on a non-rebreather mask. He has been able to weight be weaned down to 6 L overnight. He states he actually feels better. He is wondering why he cannot go home. He has no history of needing oxygen at home. He does have a history of AFib. His rates have been quite elevated, up into the 130s and 40s with activity. He denies any chest pain. He was initially given Rocephin and azithromycin and switched over to IV Zosyn by the hospitalist this morning. OBJECTIVE: GENERAL: He is in no acute distress. VITAL SIGNS: Do show a temperature of 98.8. T-max in the last 24 hours was 100.9 at 2230 last night. His heart rate is currently 110, blood pressure 128/78, respiratory rate 18, and O2 is 97% on 6 L. HEART: Irregularly irregular without murmur noted. LUNGS: Lung sounds do show rhonchi noted in the right base. Decreased lung sounds there. Otherwise, the left lung is clear. ABDOMEN: Nondistended and nontender. EXTREMITIES: Warm and dry. He had no edema. MENTAL STATUS: He is alert. He is oriented x3. LABORATORY DATA: Lab work from today did show his white count up from 11.6 to 13.1, hemoglobin down slightly to 13.8, platelets 137. INR yesterday 2.5. PO2, which was 47 on admission now up to 124. Sodium 146, potassium 4.2, chloride 109, bicarb 28, BUN 33, creatinine 1.3, glucose 151. Lactic down to 1.7, it was 2.5 on admission. Calcium 8.6. CRP up to 22.1. UA showed 0-5 wbc's. ASSESSMENT: 1. Sepsis due to community-acquired pneumonia versus aspiration. Given history, we will get Speech Therapy involved for a swallow study. We will continue on the IV Zosyn for now. We will repeat his lab work tomorrow. We will continue to wean oxygen as able, and I will get a repeat chest x- ray later today. 2. Atrial fibrillation with rapid ventricular rates. We will go ahead and give him a p.o. dose of Lopressor now. We will continue his Toprol 50 mg daily, but increase it if indicated. He is also on Norvasc 5 mg daily, which I am going to hold tomorrow's dose in case further blood pressure adjustments are needed with the Toprol. He is already on Coumadin. We will repeat an INR tomorrow. 3. Acute hypoxic respiratory failure due to community-acquired pneumonia. We will continue to wean oxygen. 4. Essential hypertension. Blood pressure is currently controlled. 5. History of hepatic cirrhosis. This has been stable. Bilirubin was mildly elevated. No further monitoring planned unless other symptoms persist. 6. History of renal failure. His creatinine has been stable. We will continue to monitor closely. We will continue him on some low-dose IV fluids. I am not concerned that he is having any heart failure symptoms. Baseline creatinine is 1.0. PLAN: The patient will continue acute cares with IV fluids, IV Zosyn day #1, IV antibiotics day #2. Wean oxygen as able. Anticipate that overall the patient may be able for discharge as soon as tomorrow. Repeat x-ray and continue to follow his course, get speech involved. MKA: 11/11/2018 16:12:30 MODL: 11/11/2018 16:40:33 /[id number] MTDD
[2018-11-11] MEDS ORDERED: Warfarin 2.5 MG Tab PO SCH (20:00)
[2018-11-12] MEDS: Piperacillin/Tazobactam 3.375 GM in Sodium Chloride 0.9% 100 ML IV SCH (00:40)
[2018-11-12] MEDS: Lactated Ringers 1,000 ML IV SCH (00:45)
[2018-11-12] MEDS: atorvaSTATin 10 MG Tab PO SCH (07:47)
[2018-11-12] MEDS: Metoprolol Succinate 50 MG Tab.ER PO SCH (07:48)
[2018-11-12] MEDS: Psyllium Husk Powder Sugar Free 5.85 GM Packet PO SCH (07:50)
[2018-11-12] MEDS ORDERED: Metoprolol Succinate 50 MG Tab.ER PO ONE (09:00)
[2018-11-12] MEDS ORDERED: Amoxicillin/Clavulanate K 875-125 MG Tab PO SCH (09:30)
--- NOTE | 2018-11-12 11:53 | DISCH ---
PRIMARY DISCHARGE DIAGNOSES: 1. A right middle lobe pneumonia, suspected due to aspiration as patient had some trouble swallowing. 2. Sepsis due to the pneumonia. 3. Acute hypoxic respiratory failure due to pneumonia. 4. Atrial fibrillation with rapid ventricular rates due to acute illness. 5. Essential hypertension. 6. Remote history of hepatic cirrhosis. 7. History of renal failure due to illness. Kidney function stable on this admission. 8. Elevated proBNP, but no known history of heart failure. No symptoms during this stay. 9. Previous kidney stones. 10.Previous toe amputation. 11.Mixed hyperlipidemia. REASON FOR ADMISSION: On the date of admission, this 83-year-old had been feeling unwell since the previous day. He had some trouble swallowing. When he was having more trouble with cough and shortness of breath and fever, presented to the emergency room and had a fever of 100.2 with T-max up to 100.9, heart rates into the 160s, O2 sats down to 84% on room air. He had an x-ray which showed the right middle lobe pneumonia. He was admitted. He was placed on IV Rocephin and Zithromax, but on the next morning was switched over to IV Zosyn. His blood cultures were negative. No sputum cultures were obtained. His cough and breathing improved. He was weaned from a non-rebreather mask down to 6 L yesterday and was just taken off oxygen this morning satting 95% on room air. Due to the faster heart rates, his amlodipine was held and he was given a p.r.n. dose of Lopressor 50. His Toprol-XL this morning was also increased to 100 and his heart rates were back down around 100 with maximum rates instead of into the 140s and 150s, now up to 120s when he is up moving around, but he was feeling well. He was not having any symptoms. He was having no chest pain. He was having no leg swelling. Otherwise, he was switched over to oral Augmentin this morning. He has been on yogurt for C. diff prophylaxis. His lab work had showed resolution of white count down to 9.4 today, hemoglobin was 12.8. He had been on Coumadin for DVT prophylaxis. His platelets were 136, 167 on admission. Creatinine was 1.2. Otherwise, all electrolytes were okay and his INR was 2.8. DISCHARGE PLANS AND INSTRUCTIONS: He will follow up in the clinic with Dr. Abreu in 1 week at 3:40 in the afternoon with an INR check. He will increase his Toprol to 100 mg daily until seen and hold his amlodipine. This is for better heart rate control. He will take Augmentin 875 twice daily for another 7 doses. He will take his warfarin just 2.5 tonight instead of 5, otherwise be on his home dosing. He will cough and deep breaths. He will avoid excessive activity. He does not need oxygen. PHYSICAL EXAMINATION: Discharge Vital Signs: Include a temperature 98.4, pulse 96, blood pressure 120/76, respiratory rate 20, O2 of 95% on room air. General: He is in no acute distress. Heart: Regularly irregular. Lungs: Lung sounds are clear over the left lung, but decreased with rhonchi over that right middle lobe. Abdomen: Nondistended, nontender. Extremities: Warm and dry. No edema. Mental Status: He is alert and orientated x3. DIAGNOSTIC DATA: He did have an x-ray repeated late yesterday afternoon, which actually was showing continued pulmonary infiltrate in that right mid lung and base, however, no effusion, no worsening. MKA: 11/12/2018 09:49:53 MODL: 11/12/2018 11:41:44 /[id number]
[2018-11-12] MEDS ORDERED: Warfarin 5 MG Tab PO SCH (20:00)
== END 2018-11-12 14:49 | disposition home or self-care (01) | DRG 871 ==
LOC: VM.ED 20:22 → VM.MS 21:42
PROVIDERS: ADMIT Physician Assistant; ATTEND Internal Medicine
DX: A41.9 Sepsis, unspecified organism (principal); J69.0 Pneumonitis due to inhalation of food and vomit; J96.01 Acute respiratory failure with hypoxia; I48.91 Unspecified atrial fibrillation; I10 Essential (primary) hypertension; E78.2 Mixed hyperlipidemia; Z87.442 Personal history of urinary calculi; Z88.8 Allergy status to other drugs, medicaments and biological substances; Z79.01 Long term (current) use of anticoagulants; Z79.899 Other long term (current) drug therapy; Z89.429 Acquired absence of other toe(s), unspecified side
CPT/HCPCS: 36415; 36600; 71045; 71046; 80048; 80053; 81001; 82803; 83605; 83735; 83880; 84443; 84484; 85025; 85610; 86140; 87040; 92526-GN; 92610-GN; 93005; 93010; 96365; 96375; 99284-GF; 99285-25; A9270-GY; J0456; J0696; J2543; J2920; J7030; J7050; J7120

== ENCOUNTER 2019-07-29 09:32 | Emergency (ER) | payer MEDICARE, OTHER ==
--- NOTE | 2019-07-29 10:01 | EDM.PDOC ---
ED HPI GENERAL MEDICAL PROBLEM - General Chief Complaint: Laceration Time Seen by Provider: 07/29/19 09:40 Source of Information: Reports: Patient, Family History Limitations: Reports: No Limitations - History of Present Illness INITIAL COMMENTS - FREE TEXT/NARRATIVE: Patient states he fell approximately 3 AM this morning called his left forearm on the knob of the nightstand causing a severe laceration went to the clinic this morning stated that they could not fix it there and sent him to the ER for evaluation and closure. Patient denies any head injury or loss of consciousness states he feels fine he is currently on Coumadin. He has no other complaints at this time Onset: Today, Sudden Duration: Hour(s): Location: Reports: Upper Extremity, Left Associated Symptoms: Reports: No Other Symptoms. Denies: Confusion, Chest Pain , Diaphoresis, Headaches, Nausea/Vomiting, Shortness of Breath, Syncope, Weakness Other Treatments [employer]: dressing - Related Data Allergies Allergy/AdvReac Type Severity Reaction Status Date / Time SIMONE Inhibitors Allergy Unknown Cannot Verified 07/29/19 09:44 Remember cisapride [From Propulsid] AdvReac Nausea and Verified 07/29/19 09:44 Vomiting Home Meds: Home Meds Psyllium Husk (With Sugar) [Metamucil Powder] 2 tsp PO DAILY 11/10/18 [History] Warfarin [Coumadin] 2.5 mg PO ASDIRECTED 11/10/18 [History] atorvaSTATin [Lipitor] 10 mg PO DAILY 11/10/18 [History] Metoprolol Succinate [Toprol Xl] 100 mg PO DAILY #7 tab.sr.24h 11/12/18 [Rx] Lutein/Min/Vit C/Vit E Acetate [Ocuvite Lutein] 1 each PO BID 07/29/19 [History] Past Medical History Cardiovascular History: Reports: Afib, High Cholesterol, Hypertension Other Gastrointestinal History: hepatic cirrhosis Genitourinary History: Reports: Acute Renal Failure, Renal Calculus Hematologic History: Reports: Anticoagulation Therapy Social & Family History - Family History Family Medical History: Noncontributory - Tobacco Use Smoking Status *Q: Former Smoker Used Tobacco, but Quit: Yes Month/Year Tobacco Last Used: - Caffeine Use Caffeine Use: Reports: Coffee ED ROS GENERAL - Review of Systems Review Of Systems: See Below Constitutional: Reports: No Symptoms HEENT: Reports: No Symptoms Respiratory: Reports: No Symptoms Cardiovascular: Reports: No Symptoms Endocrine: Reports: No Symptoms GI/Abdominal: Reports: No Symptoms : Reports: No Symptoms Musculoskeletal: Reports: No Symptoms Skin: Reports: No Symptoms Neurological: Reports: No Symptoms. Denies: Confusion, Dizziness, Headache, Numbness, Paresthesia, Pre-Existing Deficit, Syncope, Tingling, Trouble Speaking , Difficulty Walking, Weakness, Change in Speech, Gait Disturbance Psychiatric: Reports: No Symptoms Hematologic/Lymphatic: Reports: No Symptoms Immunologic: Reports: No Symptoms ED EXAM, SKIN/RASH Exam: See Below Exam Limited By: No Limitations General Appearance: Alert, WD/WN, No Apparent Distress, Other (Patient alert and oriented x4 normal conversation logical thought process cranial nerves II through XII are intact follows all commands) Eye Exam: Bilateral Eye: EOMI, PERRL Nose: Normal Inspection Throat/Mouth: Normal Inspection, Normal Lips, Normal Teeth, Normal Gums, Normal Oropharynx, Normal Voice, No Airway Compromise Head: Atraumatic, Normocephalic Neck: Normal Inspection, Supple, Non-Tender, Full Range of Motion Respiratory/Chest: No Respiratory Distress, Lungs Clear, Normal Breath Sounds, No Accessory Muscle Use Cardiovascular: Normal Peripheral Pulses, Regular Rate, Rhythm, No Edema, No Gallop, No JVD, No Murmur, No Rub GI/Abdominal: Normal Bowel Sounds, Soft, Non-Tender, No Organomegaly, No Distention Extremities: Normal Inspection, Normal Range of Motion, Non-Tender, No Pedal Edema, Normal Capillary Refill Neurological: Alert, Oriented, CN II-XII Intact, Normal Cognition, Normal Gait, Normal Reflexes, No Motor/Sensory Deficits Psychiatric: Normal Affect, Normal Mood Skin: Warm, Dry, Intact, Normal Color, No Rash Location, Skin: Other (Exam to the left forearm anterior aspect there is a 6 cm x 9 cm jagged laceration there is no tendon involvement patient has full range of motion with extremity he is neurovascular intact has normal range of motion normal opposition abduction abduction normal FDS FDP and extensors normal radius and ulna pulses ) Course - Vital Signs Text/Narrative:: Tetanus is up-to-date last one was 2012 INR was checked last week 2.4 Laceration was closed with 4-0 Vicryl in a pursestring suture then individual Steri-Strips was placed across the laceration and stitched with 3-0 Ethilon simple interrupted stitches through the Steri-Strips number of 6 with well approximation of the skin the wound was covered with Telfa pad 4 x 4's and Kerlix patient was given signs and symptoms of infection need to follow-up with his primary care provider in the next 24 to 48 hours and have the stitches removed in the next 7 to 10 days Last Recorded V/S: Last Vital Signs Temp 37.0 C 07/29/19 09:38 Pulse 95 07/29/19 09:38 Resp 18 07/29/19 09:38 BP 153/87 H 07/29/19 09:38 Pulse Ox 98 07/29/19 09:38 - Orders/Labs/Meds Meds: Medications Discontinued Medications Generic Name Dose Route Start Last Admin Trade Name Asael PRN Reason Stop Dose Admin Bupivacaine HCl/Epinephrine Bitart 30 ml 07/29/19 10:02 07/29/19 10:08 Marcaine 0.5%/Epinephrine 1:200,000 INJECT 07/29/19 10:03 30 ml ONETIME ONE Administration Departure - Departure Time of Disposition: 10:55 Disposition: Home, Self-Care 01 Clinical Impression: Laceration of left forearm - Discharge Information *PRESCRIPTION DRUG MONITORING PROGRAM REVIEWED*: No *COPY OF PRESCRIPTION DRUG MONITORING REPORT IN PATIENT EMELY: No Forms: ED Department Discharge Sepsis Event Note - Evaluation Sepsis Screening Result: No Definite Risk - Focused Exam Vital Signs: Vital Signs Temp Pulse Resp BP Pulse Ox 07/29/19 09:38 37.0 C 95 18 153/87 H 98 Date Exam was Performed: 07/29/19 Time Exam was Performed: 11:05 - Problem List & Annotations (1) Laceration of left forearm SNOMED Code(s): 51589424917927154 Code(s): S51.812A - LACERATION WITHOUT FOREIGN BODY OF LEFT FOREARM, INIT ENCNTR Status: Acute Current Visit: Yes - Assessment/Plan Plan: Patient states he is fine with taking no pain medicine says it does not hurt if he does he can take [id number]
[2019-07-29] MEDS ORDERED: Bupivacaine 0.5%/EPINEPHrine 1:200,000 30 ML SDV INJECT ONE (10:02)
== END 2019-07-29 11:15 | disposition home or self-care (01) ==
LOC: VM.ED 09:32
DX: S51.812A Laceration without foreign body of left forearm, initial encounter (principal); I10 Essential (primary) hypertension; I48.91 Unspecified atrial fibrillation; Z79.01 Long term (current) use of anticoagulants; E78.00 Pure hypercholesterolemia, unspecified; Z79.899 Other long term (current) drug therapy; Z87.891 Personal history of nicotine dependence; Z88.8 Allergy status to other drugs, medicaments and biological substances; W26.8XXA Contact with other sharp object(s), not elsewhere classified, initial encounter
CPT/HCPCS: 12002; 99282; 99283; J3490